=== PATIENT | male | born 1935 | race Caucasian/White ===

== ENCOUNTER → 2016-10-26 | Outpatient (CLI) | payer MEDICARE, BC ==
--- NOTE | 2016-10-26 16:41 | RADRPT ---
PROCEDURE: XR bilateral knees. CLINICAL INDICATION: Knee pain TECHNIQUE: AP weightbearing, lateral weightbearing and sunrise views of each knee are available fo r review. COMPARISON: 05/21/2015 FINDINGS: Right knee: There is severe osteoarthrosis involving the right medial tibial femoral compartment and mild to mod erate osteoarthrosis involving the lateral tibial femoral compartment and the patellofemoral compart ment .This is associated with joint space narrowing, subchondral sclerosis and osteophytosis. Left knee: There is moderate to severe osteoarthrosis involving the left medial tibial femoral compartment and mild to moderate osteoarthrosis involving the lateral tibial femoral compartment and the patellofemo ral compartment. This is associated with joint space narrowing, subchondral sclerosis and osteophyto sis. There is otherwise normal mineralization, architecture and alignment. No fractures are identified. No osseous lesions are identified. The soft tissues are unremarkable. IMPRESSION: Severe osteoarthrosis involving the right medial tibial femoral compartment and mild to moderate ost eoarthrosis involving the lateral tibial femoral compartment and the patellofemoral compartment. Moderate to severe osteoarthrosis involving the left medial tibial femoral compartment and mild to m oderate osteoarthrosis involving the lateral tibial femoral compartment and the patellofemoral fabiola rtment. RPTAT: HGDB .Roland Willard MD, Date Time Electronically viewed and signed by .Roland Willard MD, on 10/26/2016 16:41 .B/
--- NOTE | 2016-10-27 04:26 | HKNOTE ---
DATE OF SERVICE: 10/26/2016 MAIN COMPLAINT: Pain in the right knee. HISTORY OF MAIN COMPLAINT: The patient is an 81-year-old male who has seen me several times in the past for his knee problems. He was diagnosed as having degenerative osteoarthritis of both knees. He was advised in 05/2015 that he would need to undergo knee replacement surgery at some time in the future. He has been treated conservatively since then with cortisone injections into his knees. He now complains that his right knee has become very much more painful over the past 2 years. In ad dition to this, he feels that the muscles in both legs have become weak. He discussed this with his home visits nurse, Dr. Gutierrez, who has recommended that he see a neurologist, Dr. Drisclol, in case he has "mu scle inflammation" (myositis). Dr. Gutierrez thought that he might have inflammation and "my blood inflammation levels were up in 2014 ." This was recently repeated and was negative. His right knee pain has become very much worse. The knee swells it occasionally feels unstable, it does not lock. He also gets pain in the lateral aspect of the right calf which radiates up the leg as far as his buttocks, but not to his lower back. He occasionally gets numbness and tingling in th e right leg. His knee pain is aggravated by walking and stair climbing. He does get rest pain for which he takes Tylenol or Ibuprofen. He has a long history of problems with his lower back. He nguyen s not recall if he has seen a medicare insurance specialist. Remarkably, he can walk up to 2 miles on a level andre rface. He does not use a walking aid. The right knee occasionally "collapses." He limps "a little some of the time." He can clip his toenails and tie his shoelaces. SPORTING ACTIVITIES: None recently. PAST ORTHOPEDIC HISTORY: Prior orthopedic operations none. PRIOR CORTISONE INTAKE: Right knee in the past. ALCOHOL INTAKE: One beer a day. OTHER JOINT PROBLEMS: Shoulders. BLOOD TESTS FOR ARTHRITIS: None. PRIOR INJURIES TO HIPS OR KNEES: None. WORK STATUS: Patient is a barn deputy building guard. He climbs up ladders and he lifts up heavy morales ghts. SOCIAL HISTORY: The patient has been for many years. He has no children or other relative s, he lives alone in a single story house. PAST MEDICAL HISTORY: Hypertension, prostatism. PAST SURGICAL HISTORY: Prostatectomy in 2009 for prostate cancer and cholecystectomy. DRUG ALLERGIES: NONE. MEDICATIONS: 1. Timolol eyedrops. 2. Benicar 20 mg daily for hypertension. 3. Multivitamins. FAMILY HISTORY: Noncontributory. SYSTEMS REVIEW: Prone to dizzy spells, age-related failing vision, excess urination, excess night u rination, gait disturbance, especially from "collapsing right knee." HABITS: The patient quit smoking in 1965. Alcohol intake one drink a day for 65 years. PHYSICAL EXAMINATION GENERAL: The patient is a remarkably spry looking 81-year-old male. VITAL SIGNS: Height 5 feet 11 inches, weight 185 pounds, blood pressure 154/77, temperature 98.1. Of note just on talking to him, he has lost several teeth and he indicates that several teeth have f negrita out recently (to be taken note of should he need knee replacement surgery). The patient walks without a walking aid. He walks with both knees flexed. He does not appear to be in pain. Motor examination lower extremities, 5/5 muscle strength in all muscle groups tested in t he legs. HIPS: Both hips have a full range of motion. RIGHT KNEE: The right knee shows varus alignment, 6+ crepitus in the knee and none in the patella. Extension lacks 10 degrees. Flexion lacks 25 degrees. Pain at the limits of motion. 3+ effusion. 6+ crepitus. LEFT KNEE: The left knee shows varus alignment. 6+ crepitus in the knee and none in the patella. Ac tive and passive extension is 0 degrees. Active and passive flexion lacks 25 degrees. The medial and lateral collateral ligaments and cruciate ligaments are intact. Valentín test is negative. There is no effusion, tenderness, scarring, crepitus, or cysts. The patella tracks normally. There is no tend erness on the articular surface of the patella or in the patellar groove. The Q angle is normal. IMAGING: Plain x-rays of the knees obtained today at the [facility] [place] (3 views eac h knee). Right knee imaging shows exceedingly severe degenerative osteoarthritis affecting the medi al compartment and patellofemoral joint with [id number] contact medially and in the patellofemoral joint. Large osteophytes. Subchondral sclerosis and intraosseous cyst formation. Plain x-rays of the left knee (3 views) show moderate narrowing of the medial compartment of the pat ellofemoral joint. No [id number] contact. No osteophytes. DIAGNOSES: 1. Exceedingly severe degenerative osteoarthritis of the right knee. 2. Moderate degenerative osteoarthritis of left knee. 3. Possible (?) polymyalgia rheumatica. 4. Hypertension. 5. History of prostate cancer. MANAGEMENT: Under sterile conditions, the patient was given injection of 80 mg of Kenalog and 5 mL of 2% lidocaine into the right knee. He will make arrangements to see Dr. Driscoll to rule out a myelopathy of his lower extremities. He is certainly a candidate for knee replacement surgery on the right side. He appears to be in mike rly good health for a man of his age and it is an option for him once after his consultation with a neurologist, Dr. Driscoll. The patient will return to Dr. Zeus Gutierrez after he has seen Dr. Driscoll. If Dr. Gutierrez feels that he is in good enough health undergo the knee surgery, he will contact the office and arrangements will be made for a preoperative visit and scheduling. Dictated By: MILAGRO ALEGRIA/JAYDE Conf#: [id number] DID#: [id number]
== END | disposition home or self-care (01) ==
LOC: HKI 15:00
DX: M25.561 Pain in right knee (principal); M17.0 Bilateral primary osteoarthritis of knee; I10 Essential (primary) hypertension
CPT/HCPCS: 20610; 73562; G0463

== ENCOUNTER → 2017-03-22 | Outpatient (CLI) | payer MEDICARE, BC ==
--- NOTE | 2017-03-23 08:39 | HKNOTE ---
DATE OF SERVICE: 03/22/2017 The patient comes in for checkup on both knees. He was last seen by me in 09/2016. I gave him a co rtisone injection into the right knee which he said gave him about 6 weeks of relief. He has contin ued to have some pain in the knee, but remarkably in the last month or two his knee has improved! I n fact, today he has absolutely no pain in his right knee. He used to walk up to 2 miles a day. He has had to cut back and now goes back to a half a mile a day. I asked him to see a neurologist kimberly frazier the weakness in his right leg. He saw a doctor in [place] who obtained a CBC but did no lower extremity EMGs and nerve conduction studies and not at all helpful. He complains that his right leg still feels slightly weaker than the left leg. He also gets pain in his right leg and buttocks, which radiates to the ankle. He gets some tingling in the same area. He states "I definitely don't ever want to have back surgery." He takes CBD extract which he also f eels may be relieving him of some of his pain. PHYSICAL EXAMINATION: Right knee: Muscle strength around the knee is 4.5/5. The right knee clinic ally has arthritis in terms of swelling and crepitus. His most recent x-rays were reviewed and these show [id number] degenerative osteoarthritis of the medial compartment and patellofemoral joint. MANAGEMENT: The patient will call if and when he wishes to consider having knee replacement surgeri es. He says he certainly is not ready to consider that at this time since he has no pain. Note apolonia t he recently also had "bad teeth removed" in preparation for the time when he will need knee surger y. He will be seen again as necessary for further evaluation and treatment. Dictated By: MILAGRO ALEGRIA/JAYDE Conf#: [id number] DID#: [id number]
== END | disposition home or self-care (01) ==
LOC: HKI 09:17
DX: M17.11 Unilateral primary osteoarthritis, right knee (principal); R20.2 Paresthesia of skin
CPT/HCPCS: G0463